=== PATIENT | female | born 1970 | race Caucasian/White ===

== ENCOUNTER 2020-09-15 08:37 | Outpatient (REF) | payer OTHER, SELFPAY ==
--- NOTE | 2020-09-15 08:43 | MM_ITS ---
EXAMINATION: MM SCREENING DIGITAL BREAST TOMOSYNTHESIS, BILATERAL CLINICAL INFORMATION: Screening. Asymptomatic. The lifetime risk of breast cancer based on the Tyrer-Cuzick Model is 18%. COMPARISON: Mammography: August 10, 2019 and studies dating back to February 02, 2014 TECHNIQUE: Digital breast tomosynthesis is performed in both the craniocaudal and mediolateral oblique views along with computer-aided detection (CAD). Synthesized 2D images are generated from the tomosynthesis. FINDINGS: There are scattered areas of fibroglandular density (ACR BI-RADS breast composition Category b). There are no significant masses, abnormal calcifications, or other abnormalities. MM/MM tomosynthesis screening BI IMPRESSION: There are no significant changes from prior study. ASSESSMENT: BI-RADS 1: Negative RECOMMENDATION: Routine annual mammography screening. This patient's information was entered into a reminder system with a target due date for their next mammogram.
== END 2020-09-15 08:38 | disposition home or self-care (01) ==
LOC: HO.MAMMO 08:37
PROVIDERS: PCP Internal Medicine; Visit Provider Internal Medicine
DX: Z12.31 Encounter for screening mammogram for malignant neoplasm of breast (principal)
CPT/HCPCS: 77063; 77067

== ENCOUNTER 2021-05-16 07:49 | Outpatient (REF) | payer OTHER, SELFPAY ==
--- NOTE | 2021-05-16 07:54 | ECG_ITS ---
Test Reason : RO3.0 Blood Pressure : / mmHG Vent. Rate : 056 BPM Atrial Rate : 056 BPM P-R Int : 166 ms QRS Dur : 078 ms QT Int : 432 ms P-R-T Axes : 045 059 045 degrees QTc Int : 416 ms Sinus bradycardia Otherwise normal ECG No previous ECGs available Referred By: Eileen Awad Electronically Signed By:Dar Allen
[2021-05-16 08:33] LABS: MANUAL DIFF FLAG NO
[2021-05-16 08:36] LABS: Basophils Percent Auto 0.5 % (0-2); Eosinophils Absolute Auto 0.1 X10*3/uL (0.0-0.4); Hemoglobin 12.5 g/dl (12.0-16.0); Imm Gran Abs Auto 0.02 X10*3/uL (0.00-0.03); Imm Gran Pct Auto 0.4 % (0.0-0.4); Lymphocytes Absolute Auto 1.9 X10*3/uL (1.2-4.9); Lymphocytes Percent Auto 33.4 % (20-40); Mean Corpuscular HGB Conc 32.1 g/dl (31.0-35.0); Mean Corpuscular Hemoglobin 29.2 pg (27.0-33.0); Mean Corpuscular Volume 91.1 fL (80-98); Mean Platelet Volume 10.1 fL (9.4-12.3); Monocytes Absolute Auto 0.4 X10*3/uL (0.1-1.2); Monocytes Percent Auto 6.9 % (2-11); Neutrophils Absolute Auto 3.2 X10*3/uL (2.0-8.3); Neutrophils Percent Auto 56.8 % (45-73); Platelet Count 213 X10*3/uL (160-400); Red Blood Count 4.28 X10*6/uL (4.20-5.50); Red Cell Distribution Width 11.7 % (11.0-16.0); White Blood Count 5.6 X10*3/uL (4.8-10.8)
[2021-05-16 09:04] LABS: Alanine Aminotransferase 44 U/L (0-31); Albumin Level 4.4 g/dL (3.5-5.0); Alkaline Phosphatase 80 U/L (39-117); Anion Gap 13 (12-20); Aspartate Amino Transferase 47 U/L (5-31); Bilirubin Total 0.7 mg/dL (0.0-1.0); Blood Urea Nitrogen 12 mg/dL (9-16); Calcium 9.7 mg/dL (8.4-10.2); Carbon Dioxide 27 mmol/L (22-29); Chloride 105 mmol/L (96-108); Cholesterol 227 mg/dL; Estimated Glomerular Filt Rate > 60; Glucose Random 87 mg/dL (60-115); Potassium 4.3 mmol/L (3.3-5.1); Sodium 141 mmol/L (135-145); Total Protein 7.1 g/dL (6.5-8.0); Triglycerides 48 mg/dL
[2021-05-16 09:06] LABS: Glucose Urine UA NEG (NEG); Leukocyte Esterase Urine TRACE (NEG); Nitrite Urine NEG (NEG); Urine Blood NEG (NEG); Urine Ketones NEG (NEG); Urine Protein NEG (NEG-TRACE)
[2021-05-16 09:07] LABS: Appearance Urine CLEAR; Color Urine YELLOW
[2021-05-16 09:18] LABS: Free T4 (Free Thyroxine) 1.05 ng/dL (0.71-1.85); Thyroid Stimulating Hormone 1.59 uIU/mL (0.32-4.0); Vitamin D 25-OH Total 22.4 ng/mL (>30)
[2021-05-16 09:22] LABS: HDL Cholesterol 113 mg/dL; LDL Cholesterol Calculated 105 mg/dl
[2021-05-16 09:28] LABS: Bacteria Urine TRACE /LPF; RBC Urine 0 /HPF (0); Squamous Epithelial Cell Urine 1+ /LPF; WBC Urine 0-2 /HPF (0-4)
[2021-05-16 10:04] LABS: Folate 15.1 ng/mL (> or = 4.0); Vitamin B12 465 pg/mL (200-900)
== END 2021-05-16 07:50 | disposition home or self-care (01) ==
LOC: HO.LAB 07:49
PROVIDERS: PCP Internal Medicine; Visit Provider Internal Medicine
DX: E78.00 Pure hypercholesterolemia, unspecified (principal); R03.0 Elevated blood-pressure reading, without diagnosis of hypertension; R79.89 Other specified abnormal findings of blood chemistry; R94.5 Abnormal results of liver function studies
CPT/HCPCS: 36415; 80053; 80061; 81001; 82306; 82607; 82746; 84439; 84443; 85025; 93005

== ENCOUNTER 2021-06-08 09:11 | Outpatient (REF) | payer OTHER, SELFPAY ==
--- NOTE | ~2021-06-08 | US_ITS ---
EXAMINATION: US ABDOMEN COMPLETE CLINICAL INFORMATION: Other specified abnormal findings of blood chemistry. COMPARISON: None TECHNIQUE: Real-time imaging of the abdominal viscera. FINDINGS: PANCREAS: Normal. ABDOMINAL AORTA: The proximal, mid, and distal segments are normal in caliber. INFERIOR VENA CAVA: Visualized portions are normal. LIVER: Normal. The liver is normal in size. The liver contour is normal. Parenchymal echogenicity is normal. No focal hepatic lesion. There is no intrahepatic biliary duct dilatation seen. GALLBLADDER: Normal. The gallbladder is physiologically distended without evidence of stones, sludge, polyps, wall thickening or pericholecystic fluid. COMMON BILE DUCT: Normal in caliber measuring 0.1 cm in diameter. RIGHT KIDNEY: Normal. No hydronephrosis. No renal calculi or focal parenchymal lesions. The kidney measures 9.4 cm in maximum dimension. LEFT KIDNEY: Normal. No hydronephrosis. No renal calculi or focal parenchymal lesions. The kidney measures 11.9 cm in maximum dimension. SPLEEN: Normal. The spleen measures 10.1 cm in maximum dimension. FREE FLUID: None. US/US abdomen complete IMPRESSION: Unremarkable ultrasound abdomen complete
[2021-06-08 11:04] LABS: Glucose Urine UA NEG (NEG); Leukocyte Esterase Urine 1+ (NEG); Nitrite Urine NEG (NEG); Specific Gravity - Urine >= 1.030 (1.005-1.025); Urine Blood NEG (NEG); Urine Ketones NEG (NEG); Urine Protein NEG (NEG-TRACE)
[2021-06-08 11:14] LABS: Appearance Urine CLOUDY; Color Urine YELLOW
[2021-06-08 11:33] LABS: Alanine Aminotransferase 34 U/L (0-31); Albumin Level 4.7 g/dL (3.5-5.0); Alkaline Phosphatase 84 U/L (39-117); Aspartate Amino Transferase 39 U/L (5-31); Bilirubin Direct 0.3 mg/dL (0.0-0.5); Bilirubin Total 0.7 mg/dL (0.0-1.0); Iron 137 mcg/dL (30-160); Percent Iron Saturation 35 % (15-50); Total Iron Binding Capacity 386 mcg/dL (228-428); Total Protein 7.8 g/dL (6.5-8.0); Unsaturated Iron Binding 249 ug/dL
[2021-06-08 11:45] LABS: HBS Num1 0.33 mIU/mL (0-7.99); ~Hepatitis B Surface Antibody NONREACTIVE (Nonreactive)
[2021-06-08 12:17] LABS: Bacteria Urine TRACE /LPF; Mucus Urine 1+ /LPF; RBC Urine 0-2 /HPF (0); Squamous Epithelial Cell Urine 1+ /LPF
[2021-06-08 13:17] LABS: HBc Num1 0.06 S/CO (0.00-0.79); HBsAGNum1 0.17 S/CO (0.00-0.99); Hepatitis B Core Antibody Nonreactive (Nonreactive); Hepatitis B Surface Antigen Negative (Negative); ~Hepatitis C Antibody Nonreactive (Nonreactive)
[2021-06-08 13:29] LABS: Ferritin 33 ng/mL (10-250)
[2021-06-12 13:37] LABS: Prot Elec - Albumin 4.8 g/dL (3.8-4.8); Prot Elec - Alpha1 0.3 g/dL (0.2-0.3); Prot Elec - Alpha2 0.7 g/dL (0.5-0.9); Prot Elec - Beta 1 0.5 g/dL (0.4-0.6); Prot Elec - Beta 2 0.4 g/dL (0.2-0.5); Prot Elec - Total Protein 7.6 g/dL (6.1-8.1)
[2021-06-12 15:00] LABS: Anti Nuclear Antibody Screen POSITIVE (NEGATIVE)
[2021-06-14 11:07] LABS: Smooth Muscle Antibody <20 U (<20)
== END 2021-06-08 09:12 | disposition home or self-care (01) ==
LOC: HO.US 09:11
PROVIDERS: PCP Internal Medicine; Visit Provider Internal Medicine
DX: R94.5 Abnormal results of liver function studies (principal); R79.89 Other specified abnormal findings of blood chemistry; R03.0 Elevated blood-pressure reading, without diagnosis of hypertension
CPT/HCPCS: 36415; 76700; 80076; 81001; 82728; 83540; 84165; 86038; 86039; 86255; 86704; 86706; 86803; 87340

== ENCOUNTER 2021-07-11 10:57 | Outpatient (REF) | payer OTHER, SELFPAY ==
[2021-07-11 14:17] LABS: Alanine Aminotransferase 26 U/L (0-31); Albumin Level 4.4 g/dL (3.5-5.0); Alkaline Phosphatase 71 U/L (39-117); Aspartate Amino Transferase 44 U/L (5-31); Bilirubin Direct 0.3 mg/dL (0.0-0.5); Bilirubin Total 0.6 mg/dL (0.0-1.0); Total Protein 6.9 g/dL (6.5-8.0)
[2021-07-17 13:51] LABS: Anti Nuclear Antibody Screen POSITIVE (NEGATIVE)
== END 2021-07-11 10:58 | disposition home or self-care (01) ==
LOC: HO.10HDL 10:57
PROVIDERS: Visit Provider Internal Medicine
DX: R74.8 Abnormal levels of other serum enzymes (principal)
CPT/HCPCS: 36415; 80076; 86038; 86039

== ENCOUNTER 2021-09-04 08:47 | Day surgery (SDC) | payer OTHER, SELFPAY ==
[2021-08-28 14:33] VITALS: BMI 23.3
--- NOTE | 2021-09-01 08:43 | HO.ANESPROP2 ---
Documented by User: Nora Boyd NP 09/01/21 08:44 HPI - Anesthesia Eval Consult details Narrative: 51yo F for Colonoscopy PMFSH Active Problems Active Problems: All Active Problems (Updated 05/16/21 @ 18:27 by Eileen Awad MD) LFT elevation (Acute) White coat syndrome with high blood pressure but without hypertension (Acute) Colon cancer screening (Acute) Annual physical exam (Acute) Past Medical History Medical History (Updated 05/16/21 @ 18:27 by Eileen Awad MD) Onychomycosis Family History Family History (Updated 03/24/21 @ 15:23 by Eileen Awad MD) Father Heart disease Irregular heart beat Mother Breast cancer Brother In good health Son In good health Maternal Uncle Myocardial infarct Surgical History Surgical History (Updated 11/10/20 @ 09:00 by Tahira Alvarez [facility]) History of section Social History Social History (Updated 03/24/21 @ 15:24 by Eileen Awad MD) Alcohol intake: current Alcohol intake frequency: does not drink Patient Tobacco Use Status: Never used Tobacco Second Hand Smoke Exposure: No Use of substances other than those prescribed or required for medical reasons: No Are you DNR?: No Advance Directives: No Advance Directives Information Provided: Yes Advance Directives on File: No Meds Allergies Allergy/AdvReac Type Severity Reaction Status Date / Time No Known Allergies Allergy Verified 11/10/20 09:00 Home Medications Medication Instructions Recorded Confirmed Last Taken Type magnesium oxide 400 mg PO DAILY 03/24/21 03/24/21 Unknown History Exam Exam Date and Time: September 01, 2021 0843 Height,Weight and Vital Signs: Height 6 ft Weight 78.018 kg Pertinent Lab Results Pertinent Lab Results: Laboratory Tests 05/16/21 05/16/21 08:10 08:10 WBC 5.6 Hgb 12.5 Hct 39.0 Plt Count 213 Sodium 141 Potassium 4.3 Chloride 105 Carbon Dioxide 27 BUN 12 Creatinine 0.87 Narrative Narrative: EKG 05/2021 Vent. Rate : 056 BPM ? ? Atrial Rate : 056 BPM ?? P-R Int : 166 ms? QRS Dur : 078 ms ? ? QT Int : 432 ms ? ? ? P-R-T Axes : 045 059 045 degrees ?? QTc Int : 416 ms ? Sinus bradycardia Otherwise normal ECG No previous ECGs available Assessment and Plan Assessment Anesthesia Assessment: Chart Reviewed Documented by User: Alyse Sheehan MD 09/04/21 09:05 [facility] Past Medical History Medical History (Updated 05/16/21 @ 18:27 by Eileen Awad MD) Onychomycosis Family History Family History (Updated 03/24/21 @ 15:23 by Eileen Awad MD) Father Heart disease Irregular heart beat Mother Breast cancer Brother In good health Son In good health Maternal Uncle Myocardial infarct Family history of problems with anesthesia: No Surgical History Surgical History (Updated 11/10/20 @ 09:00 by Tahira Alvarez Molly) History of section History of Problems with Anesthesia: No Social History Social History (Updated 03/24/21 @ 15:24 by Eileen Awad MD) Alcohol intake: current Alcohol intake frequency: does not drink Patient Tobacco Use Status: Never used Tobacco Second Hand Smoke Exposure: No Use of substances other than those prescribed or required for medical reasons: No Are you DNR?: No Advance Directives: No Advance Directives Information Provided: Yes Advance Directives on File: No Meds Allergies Allergy/AdvReac Type Severity Reaction Status Date / Time No Known Allergies Allergy Verified 11/10/20 09:00 Home Medications Medication Instructions Recorded Confirmed Last Taken Type magnesium oxide 400 mg PO DAILY 03/24/21 03/24/21 Unknown History Exam Airway Mallampati Class: II TM Dist: >3cm Neck ROM: Full Heart: rrr Lungs: cta Assessment and Plan Assessment Anesthesia Assessment: Anesthesia Plan Discussed and Chart Reviewed Final Anesthetic Review Family History of Problems with Anesthesia: No History of Problems with Anesthesia: No NPO: Yes ASA Class: II Final Preanesthetic Review: No Changes in Pt Med Stat, Meds/Allgs Chart Reviewed and Consent Obtained/Reviewed Patient Risk: Intermediate Procedure Risk: Intermediate Anesthetic Plan Anesthetic Plan: MAC: Disposition: Standard PACU
[2021-09-04 09:04] VITALS: BP 133/78; PULSE 70; RESP 16; TEMP 36.6; O2SAT 99
[2021-09-04] MEDS: Lactated Ringers 1,000 ML 100 ML IVCONT (09:22)
[2021-09-04 11:04] VITALS: BP 106/72; PULSE 69; RESP 16; TEMP 37.1; O2SAT 98
--- NOTE | 2021-09-04 11:08 | PM.OP ---
Brief Operative Note Date of Service: 09/04/21 Pre-op diagnosis: Screening Post-op diagnosis: other (Colon polyp) Procedure: Colonoscopy to the cecum with biopsy and removal of polyp Surgeon: Homer Duong Anesthesia: MAC Was an Certified Personal Finance Counselor used for this Procedure?: No Estimated blood loss (mL): 3.0 Pathology: other (A. Ascending colon polyp) Condition: stable Disposition: PACU
[2021-09-04 11:22] VITALS: BP 117/87; PULSE 69; RESP 18; TEMP 36.7; O2SAT 100
--- NOTE | 2021-09-04 20:19 | OP_ITS ---
SURGEON: Homer Duong MD INDICATIONS: The patient presents for evaluation of colorectal cancer screening. Full consent has been obtained from her for that, including risks of bleeding and perforation. PREOPERATIVE DIAGNOSIS: Colorectal cancer screening. POSTOPERATIVE DIAGNOSIS: PROCEDURE PERFORMED: Colonoscopy to the cecum with biopsy and removal of polyp. ESTIMATED BLOOD LOSS: COMPLICATIONS: ANESTHESIA: Monitored anesthesia care. ASSISTANTS: SPECIMENS: POSTOPERATIVE DIAGNOSES: Colorectal cancer screening, small colon polyp, mild sigmoid diverticulosis, small internal hemorrhoids. DESCRIPTION OF PROCEDURE: The patient was placed in the left lateral decubitus position. The digital rectal exam revealed no abnormalities. The Olympus video pediatric colonoscope was entered into the rectum and advanced to the cecum with the assistance of abdominal wall pressure. Once in the cecum, I did identify normal-appearing cecal pouch with appendiceal orifice and a normal-appearing ileocecal valve. The entire cecum and ileocecal valve appeared normal. There was transillumination of light deep in the right lower quadrant. The scope was slowly withdrawn assessing all mucosal surfaces carefully. Preparation was excellent. In the proximal ascending colon, was a flat approximately 3 or 4 mm polyp, which was biopsied and completely removed with cold biopsy forceps. I did not visualize any other polyps, colitis, nor angiodysplasia. There was a mild amount of sigmoid diverticulosis. In the rectum, scope was retroflexed visualizing internal hemorrhoids, but no other pathology. The rectal mucosa appeared normal. The scope was straightened out and withdrawn from the patient. She tolerated the procedure well and was returned to the recovery area in stable condition. IMPRESSION: 1. Small colon polyp, status post biopsy and removal. 2. Mild sigmoid diverticulosis. 3. Small internal hemorrhoids. PLAN: The results of the biopsy will be checked. If this is a tubular adenoma, I would recommend a followup colonoscopy in 5 years. If it is only hyperplastic, I would recommend a followup colonoscopy in 10 years. MD WILD Rolle/BENL / [id number]
== END 2021-09-04 12:00 | disposition home or self-care (01) ==
PROVIDERS: PCP Internal Medicine; Visit Provider Internal Medicine
PROC: 0DJD8ZZ Inspection of Lower Intestinal Tract, Via Natural or Artificial Opening Endoscopic (ICD-10-PCS; CPT 45378; principal; 2021-09-04 10:20)
DX: Z12.11 Encounter for screening for malignant neoplasm of colon (principal); D12.2 Benign neoplasm of ascending colon; K57.30 Diverticulosis of large intestine without perforation or abscess without bleeding; K64.8 Other hemorrhoids; R74.8 Abnormal levels of other serum enzymes
CPT/HCPCS: 45380; 88305

== ENCOUNTER 2021-09-30 09:48 | Outpatient (REF) | payer OTHER, SELFPAY ==
--- NOTE | ~2021-09-30 | MM_ITS ---
EXAMINATION: MM SCREENING DIGITAL BREAST TOMOSYNTHESIS, BILATERAL CLINICAL INFORMATION: Screening. Asymptomatic. The lifetime risk of breast cancer based on the Tyrer-Cuzick Model is 14%. COMPARISON: Mammography: 09/15/2020, 08/10/2019, 07/08/2018 TECHNIQUE: Digital breast tomosynthesis is performed in both the craniocaudal and mediolateral oblique views along with computer-aided detection (CAD). Synthesized 2D images are generated from the tomosynthesis. FINDINGS: There are scattered areas of fibroglandular density (ACR BI-RADS breast composition Category b). There are no significant masses, abnormal calcifications, or other abnormalities. Parenchymal pattern is similar to prior exams. No developing density. No significant changes. Skin contours are smooth. MM/MM tomosynthesis screening BI IMPRESSION: No mammographic evidence of malignancy. ASSESSMENT: BI-RADS 1: Negative RECOMMENDATION: Routine annual mammography screening. This patient's information was entered into a reminder system with a target due date for their next mammogram.
== END 2021-09-30 09:49 | disposition home or self-care (01) ==
LOC: HO.MAMMO 09:48
PROVIDERS: Visit Provider Internal Medicine
DX: Z12.31 Encounter for screening mammogram for malignant neoplasm of breast (principal)
CPT/HCPCS: 77063; 77067

== ENCOUNTER 2022-09-25 07:40 | Outpatient (REF) | payer OTHER, SELFPAY ==
[2022-09-25 11:06] LABS: MANUAL DIFF FLAG NO
[2022-09-25 11:19] LABS: Basophils Percent Auto 0.7 % (0-2); Eosinophils Absolute Auto 0.1 X10*3/uL (0.0-0.4); Eosinophils Percent Auto 1.7 % (0-4); Hematocrit 41.7 % (37.0-47.0); Hemoglobin 13.5 g/dl (12.0-16.0); Lymphocytes Absolute Auto 1.6 X10*3/uL (1.2-4.9); Lymphocytes Percent Auto 37.2 % (20-40); Mean Corpuscular HGB Conc 32.4 g/dl (31.0-35.0); Mean Corpuscular Volume 89.5 fL (80.0-98.0); Mean Platelet Volume 10.8 fL (9.4-12.3); Monocytes Absolute Auto 0.3 X10*3/uL (0.1-1.2); Monocytes Percent Auto 6.4 % (2-11); Neutrophils Absolute Auto 2.3 x10*3/uL (2.0-8.3); Platelet Count 227 X10*3/uL (160-400); Red Blood Count 4.66 X10*6/uL (4.20-5.50); Red Cell Distribution Width 11.4 % (11.0-16.0); White Blood Count 4.2 X10*3/uL (4.8-10.8)
[2022-09-25 11:37] LABS: Alanine Aminotransferase 19 U/L (0-31); Albumin Level 4.5 g/dL (3.5-5.0); Alkaline Phosphatase 70 U/L (39-117); Anion Gap 14 (12-20); Aspartate Amino Transferase 28 U/L (5-31); Bilirubin Total 0.6 mg/dL (0.0-1.0); Blood Urea Nitrogen 11 mg/dL (9-16); C Reactive Protein 0.19 mg/dL (< or = 0.50); Calcium 9.5 mg/dL (8.4-10.2); Carbon Dioxide 27 mmol/L (22-29); Chloride 104 mmol/L (96-108); Cholesterol 242 mg/dL; Estimated Glomerular Filt Rate > 60; Glucose Random 75 mg/dL (60-115); HDL Cholesterol 106 mg/dL; LDL Cholesterol Calculated 126 mg/dl; Potassium 3.8 mmol/L (3.3-5.1); Sodium 141 mmol/L (135-145); Total Protein 7.1 g/dL (6.5-8.0); Triglycerides 52 mg/dL
[2022-09-25 11:56] LABS: Estimated Average Glucose 100 mg/dL; Hemoglobin A1c % 5.1 %
[2022-09-25 12:01] LABS: Free T4 (Free Thyroxine) 1.02 ng/dL (0.71-1.85); Thyroid Stimulating Hormone 1.58 uIU/mL (0.32-4.0)
[2022-09-25 12:03] LABS: Erythrocyte Sedimentation Rate 5 MM/HR (0-20)
[2022-09-25 12:52] LABS: Folate 9.4 ng/mL (> or = 4.0); Vitamin B12 460 pg/mL (200-900)
[2022-09-25 13:33] LABS: Vitamin D 25-OH Total 24.7 ng/mL (>30)
== END 2022-09-25 07:41 | disposition home or self-care (01) ==
LOC: HO.10HDL 07:40
PROVIDERS: Visit Provider Internal Medicine
DX: R79.89 Other specified abnormal findings of blood chemistry (principal); E78.00 Pure hypercholesterolemia, unspecified
CPT/HCPCS: 36415; 80053; 80061; 82306; 82607; 82746; 83036; 84439; 84443; 85025; 85652; 86140

== ENCOUNTER 2022-10-02 07:30 | Outpatient (REF) | payer OTHER, SELFPAY ==
--- NOTE | ~2022-10-02 | MM_ITS ---
EXAMINATION: MM SCREENING DIGITAL BREAST TOMOSYNTHESIS, BILATERAL CLINICAL INFORMATION: Screening. Asymptomatic. The lifetime risk of breast cancer based on the Tyrer-Cuzick Model is 15%. COMPARISON: Mammography: 09/30/2021, 09/15/2020, 08/10/2019 TECHNIQUE: Digital breast tomosynthesis is performed in both the craniocaudal and mediolateral oblique views along with computer-aided detection (CAD). Synthesized 2D images are generated from the tomosynthesis. FINDINGS: There are scattered areas of fibroglandular density (ACR BI-RADS breast composition Category b). There are no significant masses, abnormal calcifications, or other abnormalities. No developing density or architectural abnormality. The axilla and skin contours are unremarkable. No significant changes from prior studies. MM/MM tomosynthesis screening BI IMPRESSION: No mammographic evidence of malignancy. ASSESSMENT: BI-RADS 1: Negative RECOMMENDATION: Routine annual mammography screening. This patient's information was entered into a reminder system with a target due date for their next mammogram.
== END 2022-10-02 07:31 | disposition home or self-care (01) ==
LOC: HO.MAMMO 07:30
PROVIDERS: PCP Internal Medicine; Visit Provider Internal Medicine
DX: Z12.31 Encounter for screening mammogram for malignant neoplasm of breast (principal)
CPT/HCPCS: 77063; 77067

== ENCOUNTER → 2023-10-04 07:45 | Outpatient (BNV) | payer OTHER, SELFPAY | PROVIDERS: PCP Internal Medicine; Visit Provider Radiology Diagnostic Radiology | DX: Z12.31 Encounter for screening mammogram for malignant neoplasm of breast (principal) | CPT/HCPCS: 77063; 77067 ==

== ENCOUNTER 2023-10-04 07:48 | Outpatient (REF) | payer OTHER, SELFPAY | END 2023-10-04 07:49 | disposition home or self-care (01) | LOC: HO.MAMMO 07:48 | PROVIDERS: PCP Internal Medicine; Visit Provider Internal Medicine | DX: Z12.31 Encounter for screening mammogram for malignant neoplasm of breast (principal) | CPT/HCPCS: 77063; 77067 ==

== ENCOUNTER 2023-10-22 11:10 | Outpatient (AMB) | payer OTHER, SELFPAY ==
--- NOTE | 2023-10-22 11:11 | MHC.PC.OV ---
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 Last seen in 2021 last year mammogram is up-to-date colonoscopy was done in September 2021 having tubular adenoma up-to-date [facility] Medical History (Updated 03/14/22 @ 13:11 by Eileen Awad MD) Colon cancer screening Onychomycosis Surgical History History of section Family History Father Heart disease Irregular heart beat Mother Breast cancer Brother In good health Son In good health Maternal Uncle Myocardial infarct Social History (Updated 10/22/23 @ 11:53 by Eileen Awad MD) Housing: Apartment Alcohol intake: current Alcohol intake frequency: does not drink Comment: 1 a week 1-2 drinks Patient Tobacco Use Status: Never used Tobacco e-Cigarette/Vaping Use: Never Used Second Hand Smoke Exposure: No Current occupational status: employed Cognitive needs: No Hearing needs: No Vision needs: No Questionnaire PHQ-9 Over the last 2 weeks, how often have you been bothered by any of the following problems? 2. Feeling down, depressed, or hopeless: not at all 3. Trouble falling or staying asleep, or sleeping too much: not at all 4. Feeling tired or having little energy: not at all 5. Poor appetite or overeating: not at all 6. Feeling bad about yourself - or that you are a failure or have let yourself or your family down: not at all 7. Trouble concentrating on things, such as reading the newspaper or watching television: not at all 8. Moving or speaking so slowly that other people could have noticed. Or the opposite - being so fidgety or restless that you have been moving around a lot more than usual: not at all 9. Thoughts that you would be better off or of hurting yourself in some way: not at all 16210 - PHQ-9 Billing: Yes Source: Developed by Drs. Homer Ramírez, Charmaine Cutler, Car Sanon and colleagues, with an educational ej from [employer]. Thrive Questionnaire Date Thrive assessed: 10/22/23 I am a: Patient What is your living situation today?: I have a steady place to live Within the past 12 months, did the food you bought not last and you didn't have the money to get more?: Never true Within the past 12 months, did you worry whether your food would run out before you got money to buy more?: Never true Do you have trouble paying for medicines?: No Do you have trouble getting transportation to medical appointments?: No Do you have trouble paying your heating and electricity bill?: No Do you have trouble taking care of your child, family member or friend?: No Do you have trouble with day-to-day activities such as bathing, preparing meals, shopping, managing finances, etc.?: No Are you currently unemployed and looking for a job?: No Are you interested in more education?: No Please select the resources that you would like help with: None Currently or been in a relationship where the following occur: no concerns reported AUDIT C Alcohol Use Questionnaire (AUDIT-C) 1. How often do you have a drink containing alcohol?: 2-3 times a week 2. How many drinks containing alcohol do you have on a typical day when you are drinking?: 1 or 2 3. How often do you have six or more drinks on one occasion?: Never Total Score: 3 ASHOK-7 AMB Questionnaire ASHOK-7 Date ASHOK - 7 assessed: 10/22/23 Feeling nervous, anxious, or on edge: 0 = Not at all Not being able to stop or control worryin = Not at all Worrying too much about different things: 0 = Not at all Trouble relaxin = Not at all Being so restless that it is hard to sit still: 0 = Not at all Becoming easily annoyed or irritable: 0 = Not at all Feeling afraid as if something awful might happen: 0 = Not at all Total ASHOK-7 score (0-4 normal; 5-9 mild; 10-14 moderate; 15-21 severe): 0 Source: Developed by Drs. Homer Ramírez, Charmaine Cutler, Car Sanon and colleagues, with an educational ej from [employer]. ASHOK-7 Assessment Billing ASHOK-7 Assessment Tool: ASHOK-7 Assessment 93657 Review of Systems Const Denies poor appetite and Denies weakness Eyes Denies no additional complaints ENT Reports Normal hearing present, Denies dizziness, Denies nasal congestion, Denies tinnitus and Denies sore throat Card Denies chest pain, Denies syncope, Denies rapid heart rate and Denies dyspnea Resp Denies cough and Denies dyspnea GI Denies change in stool character, Reports constipation, Denies diarrhea, Denies nausea and Denies vomiting Denies urinary frequency, Denies difficulty voiding and Denies dysuria Neuro Reports Normal hearing present, Denies confusion, Denies dizziness, Denies syncope and Denies weakness Psych Denies confusion Physical exam (Primary Care) Vital Signs: Last Vital Signs Pulse 59 10/22/23 11:12 BP 140/100 H 10/22/23 11:12 Pulse Ox 94 10/22/23 11:12 Oxygen Delivery Method Room Air 10/22/23 11:12 BMI result Body Mass Index 23.9 Tobacco/Smoking Status: Tobacco use Status Tobacco use date assessed 10/22/23 10/22/23 11:18 Patient Tobacco Use Status Never used Tobacco 10/22/23 11:18 e-Cigarette/Vaping Use Never Used 10/22/23 11:18 Thrive Assessment: Date of Thrive Assessment Date Thrive assessed 10/22/23 10/22/23 11:18 Currently or been in a relationship where the following occur: no concerns reported Const General: No confusion Orientation/consciousness: No confusion HENMT Head: Yes normocephalic Ears: external ears normal and TM's normal bilaterally Face and sinus: Yes normal facial exam Mouth: moist mucous membranes Throat: Yes tonsils normal Eyes Conjunctivae: conjunctivae normal Pupils: Equal, round and reactive pupils present and Pupil accommodation reflex normal Direct Ophthalmoscopy: normal light reflex Neck Neck: No lymphadenopathy Thyroid: Thyroid normal Chest Chest palpation & inspection: normal inspection of the chest Resp Effort & Inspection: normal respiratory effort and no audible wheezes Auscultation: clear to auscultation bilaterally, no crackles, no wheezes and lung sounds not diminished Cardio Rate: regular rate Rhythm: regular rhythm Peripheral pulses: radial pulses present and dorsalis pedis present GI Palpation (GI): no masses Auscultation: normal bowel sounds and normoactive bowel sounds Rectal Exam - Female: deferred Skin General skin exam: no rashes or lesions noted Rashes: no rashes Neuro General: No confusion Cranial nerves: Yes Equal, round and reactive pupils present and Yes Normal hearing present Cognition (Neuro): normal cognition Gait exam (Neuro): Normal gait present Motor exam (neuro): 5/5 motor strength present throughout Deep tendon reflexes (DTR's): Right brachioradialis reflex intensity grade: 2+, Left brachioradialis reflex intensity grade: 2+, Right patellar reflex intensity grade: 2+ and Left patellar reflex intensity grade: 2+ Extrem General: No edema Assessment and Plan Assessment & Plan (1) Annual physical exam: Code(s): Z00.00 - Encounter for general adult medical examination without abnormal findings (2) White coat syndrome with high blood pressure but without hypertension: Code(s): R03.0 - Elevated blood-pressure reading, without diagnosis of hypertension Orders: Orders Comprehensive Met. Panel Today R03.0 - Elevated blood-pressure reading, without diagnosis of hypertension Thyroid Stimulating Hormone Today R03.0 - Elevated blood-pressure reading, without diagnosis of hypertension Complete Blood Count Auto Diff Today R03.0 - Elevated blood-pressure reading, without diagnosis of hypertension Free T4 (Free Thyroxine) Today R03.0 - Elevated blood-pressure reading, without diagnosis of hypertension Lipid Panel Today E78.00 - Pure hypercholesterolemia, unspecified, R03.0 - Elevated blood-pressure reading, without diagnosis of hypertension Vitamin B12 and Folate Today R03.0 - Elevated blood-pressure reading, without diagnosis of hypertension Vitamin D 25-OH Total Today R03.0 - Elevated blood-pressure reading, without diagnosis of hypertension Coding Level of Care Code Est Pt Prev Care 40-64y(51213) Diagnoses Annual physical exam Z00.00 White coat syndrome with high blood pressure but without hypertension R03.0 Additional Codes ASHOK-7 Assessment Billing - ASHOK-7 Assessment Tool: ASHOK-7 Assessment 18547 ([id number])
[2023-10-22 11:12] VITALS: BP 140/100; PULSE 59; O2SAT 94; BMI 23.9
== END 2023-10-22 12:04 | disposition home or self-care (01) ==
PROVIDERS: Visit Provider Internal Medicine
DX: Z00.00 Encounter for general adult medical examination without abnormal findings (principal); R03.0 Elevated blood-pressure reading, without diagnosis of hypertension
CPT/HCPCS: 99396

== ENCOUNTER 2024-09-15 14:45 | Outpatient (AMB) | payer OTHER, SELFPAY ==
--- NOTE | 2024-09-15 14:46 | A.OFFPC_ITS ---
Intake Visit Reasons: Poison Kailyn Allergies No Known Allergies Allergy (Verified 10/22/23 11:12) Tobacco use date assessed: 10/22/23 Dental Screening Dental Screen Date: 10/22/23 HPI Poison Kailyn HPI Details 54-year-old female calling in through [email or web address] , 2 days ago working in the yard. rash R wrist noted vesicle on the R wrist [facility] Medical History (Updated 09/15/24 @ 14:58 by Eileen Awad MD) Colon cancer screening Onychomycosis Surgical History History of section Family History Father Heart disease Irregular heart beat Mother Breast cancer Brother In good health Son In good health Maternal Uncle Myocardial infarct Social History (Updated 10/22/23 @ 11:53 by Eileen Awad MD) Housing: Apartment Alcohol intake: current Alcohol intake frequency: does not drink Comment: 1 a week 1-2 drinks Patient Tobacco Use Status: Never used Tobacco e-Cigarette/Vaping Use: Never Used Second Hand Smoke Exposure: No Current occupational status: employed Cognitive needs: No Hearing needs: No Vision needs: No Questionnaire Thrive Questionnaire Date Thrive assessed: 10/22/23 AUDIT C Alcohol Use Questionnaire (AUDIT-C) 1. How often do you have a drink containing alcohol?: Never 2. How many drinks containing alcohol do you have on a typical day when you are drinking?: 1 or 2 3. How often do you have six or more drinks on one occasion?: Never Total Score: 0 ASHOK-7 AMB Questionnaire ASHOK-7 Date ASHOK - 7 assessed: 10/22/23 Source: Developed by Drs. Homer Ramírez, Charmaine Cutler, Car Sanon and colleagues, with an educational ej from [employer]. Physical exam (Primary Care) Tobacco/Smoking Status: Tobacco use Status Tobacco use date assessed 10/22/23 09/15/24 14:47 Patient Tobacco Use Status Never used Tobacco 09/15/24 14:47 e-Cigarette/Vaping Use Never Used 09/15/24 14:47 Thrive Assessment: Date of Thrive Assessment Date Thrive assessed 10/22/23 09/15/24 14:47 Skin Other: R wrist maculo vesicular area clear fluid with also L forearm Telehealth Telehealth Telehealth Platform: Telephone Location of provider rendering services: practice address Location of patient: address on file Patient Identification confirmed using: Name, : No Telehealth method: video Patient verbally consented to treatment: Yes Patient verbally consented to billing insurance company: Yes Patient informed of any privacy concerns related to visit: Yes Coding Level of Care Code Tele Est Pt Level 3 (48917) Diagnoses Allergic dermatitis due to other chemical product L23.5 Contact dermatitis trigger: other chemical product Assessment & Plan Assessment & Plan (1) Allergic contact dermatitis: Code(s): L23.9 - Allergic contact dermatitis, unspecified cause Category: Medical Qualifiers: Contact dermatitis trigger: other chemical product Qualified Code(s): L23.5 - Allergic contact dermatitis due to other chemical products Plan: Patient is given steroids by mouth as well as cream and advised to take allergy medication. Discussed about secondary infection which patient has to call. Medications: New prednisone 4 tabs QD x 2 days then 3 tabs QD x 2 days then 2 tabs Qd x 2 days then 1 tab QD x 2 days PO daily; 20 tabs 0RF J45.909 - Unspecified asthma, uncomplicated, L23.9 - Allergic contact dermatitis, unspecified cause triamcinolone acetonide 0.5% 1 appl topical BID 30 grams 0RF L23.9 - Allergic contact dermatitis, unspecified cause
== END 2024-09-15 15:45 | disposition home or self-care (01) ==
LOC: HO.HMCH 14:45
PROVIDERS: PCP Internal Medicine; Visit Provider Internal Medicine
DX: L23.5 Allergic contact dermatitis due to other chemical products (principal)

== ENCOUNTER 2024-10-19 07:38 | Outpatient (REF) | payer OTHER, SELFPAY | END 2024-10-19 07:39 | disposition home or self-care (01) | LOC: HO.MAMMO 07:38 | PROVIDERS: PCP Internal Medicine; Visit Provider Internal Medicine | DX: Z12.31 Encounter for screening mammogram for malignant neoplasm of breast (principal) | CPT/HCPCS: 77063; 77067 ==

== ENCOUNTER → 2024-10-19 07:45 | Outpatient (BNV) | payer OTHER, SELFPAY | PROVIDERS: PCP Internal Medicine; Visit Provider Internal Medicine | DX: Z12.31 Encounter for screening mammogram for malignant neoplasm of breast (principal) | CPT/HCPCS: 77063; 77067 ==

== ENCOUNTER 2025-02-23 08:52 | Outpatient (AMB) | payer OTHER, SELFPAY ==
--- NOTE | 2025-02-23 08:57 | A.OFFPC_ITS ---
Vital Signs 02/23/25 08:58 Height 6 ft Weight 178 lb 2 oz BMI 24.2 BP 130/70 Blood Pressure Location Lt brachial Position Sitting Temp 97.2 F Temp Source Temporal Artery Scan Intake Visit Reasons: PE Intake Note: Patient is here today for a physical. Freight Inspector Required: No Down Filler: Not Required per policy Accompanied by: Self / Same As Patient Allergies No Known Allergies Allergy (Verified 02/23/25 08:58) Tobacco use date assessed: 02/23/25 Dental Screening Dental Screen Date: 02/23/25 Did you have a dental visit in the last 12 months?: Yes Did you have a dental problem in the last 6 months where you did not have access to dental care?: No Was dental information given to patient?: Patient has dentist [facility] Medical History (Updated 02/23/25 @ 09:09 by Eileen Awad MD) Abnormal physical evaluation Colon cancer screening Onychomycosis Surgical History History of section Family History (Updated 02/23/25 @ 09:01 by HÉCTOR Garcia) Father Heart disease Irregular heart beat Mother Breast cancer Brother In good health Son In good health Maternal Uncle Myocardial infarct Social History (Updated 02/23/25 @ 09:13 by Eileen Awad MD) Housing: Apartment Alcohol intake: current Alcohol intake frequency: holidays/special occasions only Comment: 1 a week 1-2 drinks, 02/2025 now less Patient Tobacco Use Status: Never used Tobacco e-Cigarette/Vaping Use: Never Used Second Hand Smoke Exposure: No service: No Current occupational status: employed Cognitive needs: No Hearing needs: No Vision needs: Yes (Glasses) Questionnaire PHQ-9 Over the last 2 weeks, how often have you been bothered by any of the following problems? 1. Little interest or pleasure in doing things: not at all 2. Feeling down, depressed, or hopeless: not at all 3. Trouble falling or staying asleep, or sleeping too much: not at all 4. Feeling tired or having little energy: not at all 5. Poor appetite or overeating: not at all 6. Feeling bad about yourself - or that you are a failure or have let yourself or your family down: not at all 7. Trouble concentrating on things, such as reading the newspaper or watching television: not at all 8. Moving or speaking so slowly that other people could have noticed. Or the opposite - being so fidgety or restless that you have been moving around a lot more than usual: not at all 9. Thoughts that you would be better off or of hurting yourself in some way: not at all Total score: 0 Depression Screening Interpretation: Negative Depression Screening Done: Yes Source: Developed by Drs. Homer Ramírez, Charmaine Cutler, Car Sanon and colleagues, with an educational ej from [employer]. Thrive Questionnaire Date Thrive assessed: 02/23/25 I am a: Patient What is your living situation today?: I have a steady place to live Within the past 12 months, did the food you bought not last and you didn't have the money to get more?: Never true Within the past 12 months, did you worry whether your food would run out before you got money to buy more?: Never true Do you have trouble paying for medicines?: No Do you have trouble getting transportation to medical appointments?: No Do you have trouble paying your heating and electricity bill?: No Do you have trouble taking care of your child, family member or friend?: No Do you have trouble with day-to-day activities such as bathing, preparing meals, shopping, managing finances, etc.?: No Are you currently unemployed and looking for a job?: No Are you interested in more education?: No Please select the resources that you would like help with: None Currently or been in a relationship where the following occur: No concerns reported THRIVE Score: 0 AUDIT C Alcohol Use Questionnaire (AUDIT-C) 1. How often do you have a drink containing alcohol?: 2-4 times a month 2. How many drinks containing alcohol do you have on a typical day when you are drinking?: 1 or 2 3. How often do you have six or more drinks on one occasion?: Never Total Score: 2 ASHOK-7 AMB Questionnaire ASHOK-7 Date ASHOK - 7 assessed: 02/23/25 Feeling nervous, anxious, or on edge: 0 = Not at all Not being able to stop or control worryin = Not at all Worrying too much about different things: 0 = Not at all Trouble relaxin = Not at all Being so restless that it is hard to sit still: 0 = Not at all Becoming easily annoyed or irritable: 0 = Not at all Feeling afraid as if something awful might happen: 0 = Not at all Total ASHOK-7 score (0-4 normal; 5-9 mild; 10-14 moderate; 15-21 severe): 0 Source: Developed by Drs. Homer Ramírez, Charmaine Cutler, Car Sanon and colleagues, with an educational ej from [employer]. Review of Systems Const Denies poor appetite and Denies weakness Eyes Denies no additional complaints ENT Reports Normal hearing present, Denies dizziness, Denies nasal congestion, Denies tinnitus and Denies sore throat Card Denies chest pain, Denies syncope, Denies rapid heart rate and Denies dyspnea Resp Denies cough and Denies dyspnea GI Denies change in stool character, Reports constipation, Denies diarrhea, Denies nausea and Denies vomiting Denies urinary frequency, Denies difficulty voiding and Denies dysuria Neuro Reports Normal hearing present, Denies confusion, Denies dizziness, Denies syncope and Denies weakness Psych Denies confusion Physical exam (Primary Care) Vital Signs: Last Vital Signs Temp 97.2 F 02/23/25 08:58 BP 130/70 02/23/25 08:58 BMI result Body Mass Index 24.2 Tobacco/Smoking Status: Tobacco use Status Tobacco use date assessed 02/23/25 02/23/25 09:03 Patient Tobacco Use Status Never used Tobacco 02/23/25 09:03 e-Cigarette/Vaping Use Never Used 02/23/25 09:03 PHQ-9: PHQ-9 Score PHQ-9: Total score 0 02/23/25 09:03 Depression Screening Interpretation: Negative Thrive Assessment: Date of Thrive Assessment Date Thrive assessed 02/23/25 02/23/25 09:03 Currently or been in a relationship where the following occur: No concerns reported Const General: No confusion Orientation/consciousness: No confusion HENMT Head: Yes normocephalic Ears: external ears normal and TM's normal bilaterally Face and sinus: Yes normal facial exam Mouth: moist mucous membranes Throat: Yes tonsils normal Eyes Conjunctivae: conjunctivae normal Pupils: Equal, round and reactive pupils present and Pupil accommodation reflex normal Direct Ophthalmoscopy: normal light reflex Neck Neck: No lymphadenopathy Thyroid: Thyroid normal Chest Chest palpation & inspection: normal inspection of the chest Resp Effort & Inspection: normal respiratory effort and no audible wheezes Auscultation: clear to auscultation bilaterally, no crackles, no wheezes and lung sounds not diminished Cardio Rate: regular rate Rhythm: regular rhythm Peripheral pulses: radial pulses present and dorsalis pedis present GI Palpation (GI): no masses Auscultation: normal bowel sounds and normoactive bowel sounds Rectal Exam - Female: deferred Skin General skin exam: no rashes or lesions noted Rashes: no rashes Neuro General: No confusion Cranial nerves: Yes Equal, round and reactive pupils present and Yes Normal hearing present Cognition (Neuro): normal cognition Gait exam (Neuro): Normal gait present Motor exam (neuro): 5/5 motor strength present throughout Deep tendon reflexes (DTR's): Right brachioradialis reflex intensity grade: 2+, Left brachioradialis reflex intensity grade: 2+, Right patellar reflex intensity grade: 2+ and Left patellar reflex intensity grade: 2+ Extrem General: No edema Coding Level of Care Code Est Pt Prev Care 40-64y(39369) Diagnoses Vitamin D deficiency E55.9 Annual physical exam Z00.00 Assessment & Plan Assessment & Plan (1) Vitamin D deficiency: Code(s): E55.9 - Vitamin D deficiency, unspecified Category: Medical Plan: Vitamin-D 0702-5695 units once a day (2) Annual physical exam: Code(s): Z00.00 - Encounter for general adult medical examination without abnormal findings Category: Medical Plan History of Present Illness The patient is a 54-year-old female presenting for an annual physical examination. She has a past medical history significant for white coat syndrome that affects blood pressure readings mainly in clinical settings. Previously, a colonoscopy identified a tubular adenoma, necessitating future surveillance. Her vitamin D deficiency is managed with daily supplementation. Family history is notable for breast cancer in her mother, and cardiovascular issues in her father and maternal uncle, contributing to her ongoing health vigilance. Comprehensive blood work performed in September 2022, exhibited mild leukopenia, with the remainder of her panel showing normal results, including renal, hepatic, and thyroid functions, as well as lipid profile and specific vitamins. Since her last evaluation, there have been no additional health concerns or surgical interventions. The patient remains active, recently participating in a half [employer] event, emphasizing her commitment to physical fitness. She chose to abstain from alcohol, reports no tobacco use, and has no history of recreational drug use. The patient denies experiencing symptoms such as dizziness, syncope, gastrointestinal distress, or urinary complications in recent times. Health Maintenance - Tubular adenoma follow-up colonoscopy planned next year, last occurred in 2020. - Mammogram up to date as of October 2024. - Blood work showed mild leukopenia in September 2022 with vitamin D deficiency; supplementation recommended (2968-4809 units daily). - Encouraged daily exercise and hydration. - Discussed healthy dietary practices. - Advised on the potential for shingles vaccination, conditional upon insurance coverage. Social History - Engages in daily physical exercise, including regular running and participation in endurance events. - Currently abstaining from alcohol consumption as part of a self-initiated challenge. - Denies any use of tobacco or recreational drugs. - Patient is supported in her activities by her spouse and social network. Review of Systems - Cardiovascular: Denies chest heaviness or discomfort. - Respiratory: Denies shortness of breath or wheezing. - Gastrointestinal: Denies nausea, vomiting, swallowing difficulties, or regular heartburn, except when consuming unhealthy foods. - Genitourinary: Denies frequency or urgency, nocturia typically once nightly. - Neurological: Denies dizziness, syncope, or changes in visual acuity. - Musculoskeletal: Denies pain on exertion or during recent physical activities. Physical Exam General: Cooperative, healthy appearing, comfortable, no acute distress and well developed Orientation: Patient oriented x3 Limitations: No limitations Head: Normal to inspection Ears: Hearing grossly normal bilaterally Nose: Normal external nose present Face and sinus: Normal facial exam Eyes: Appearance normal, both eyes and all related structures Neck: Normal visual inspection and Yes full ROM Respiratory: Normal respiratory effort and able to speak in complete sentences. Clear to auscultation bilaterally Cardiovascular: Regular rate and rhythm. Normal S1 and S2 GI: Normal to inspection. Soft to palpation and nontender Skin: No rashes or lesions noted Neuro: Patient oriented x3 Extremities: Normal to inspection Results - Labs: Blood work in September 2022 indicated mild leukopenia and vitamin D deficiency, normal blood count, normal electrolytes, normal renal function, normal liver function, normal blood sugar, normal thyroid function, normal folic acid levels. - Imaging: Mammogram current as October 2024. Plan In today's visit, we focused on the patient's ongoing health maintenance. For white coat syndrome, current management remains the same as blood pressure readings outside of clinical settings are normal. Her vitamin D deficiency will continue to be managed with supplementation. Screening and diagnostic measures, like her mammogram, remain up to date, and a follow-up colonoscopy is planned for next year. The patient?s active lifestyle and dietary measures support health maintenance efforts. We discussed the potential shingles vaccination depending on coverage and indicated no further changes to current care plans at this time. Monitoring will continue, with encouragement to maintain communication regarding any new or persistent symptoms. Patient was informed and verbally consented to the use of an ambient scribe for clinic note documentation during this visit. Discussion Notes During our discussion, we reviewed the patient's current health status and previous bloodwork, emphasizing her existing conditions such as white coat syndrome and a history of colon adenoma. We advise vitamin D supplementation to address her deficiency and assessed her eligibility and interest in the shingles vaccine, conditional on insurance. Finally, we offered recommendations for health maintenance, including lifestyle modifications and adherence to a balanced diet, emphasizing hydration and regular physical activity. We provided reassurance and guidance, confirming that her current management plan remains appropriate, with vigilance for change in symptoms or health status needing future attention. Patient Instructions - Advise taking vitamin D supplements daily as advised (4749-3931 units). - Maintain regular physical activity and healthy eating habits. - Stay well-hydrated and exercise daily. - Monitor and manage any health changes, and report these promptly if they arise. - Follow up on insurance coverage for the shingles vaccine. - Schedule a follow-up colonoscopy next year as discussed. - Monitor blood pressure regularly at home. - Feel free to reach out with any health concerns or questions. Orders: Orders Free T4 (Free Thyroxine) Today Z00.00 - Encounter for general adult medical examination without abnormal findings Magnesium Today Z00.00 - Encounter for general adult medical examination without abnormal findings Complete Blood Count Auto Diff Today Z00.00 - Encounter for general adult medical examination without abnormal findings Comprehensive Met. Panel Today Z00.00 - Encounter for general adult medical examination without abnormal findings Thyroid Stimulating Hormone Today Z00.00 - Encounter for general adult medical examination without abnormal findings Lipid Panel Today Z00.00 - Encounter for general adult medical examination without abnormal findings Vitamin B12 and Folate Today Z00.00 - Encounter for general adult medical examination without abnormal findings Vitamin D 25-OH Total Today Z00.00 - Encounter for general adult medical examination without abnormal findings
[2025-02-23 08:58] VITALS: BP 130/70; TEMP 36.2; BMI 24.2
--- OUTSIDE RECORDS SUMMARY | 2025-02-23 09:18 | XMS_ITS | Patient Health Record ---
Author Organization [facility] Address [address] [place] [address] Care Team Providers [facility] Home [facility] Rn Name Role Phone Eileen Awad MD Primary Care Provider Homer Day [phone] Allergies No Known Allergies Reason For Referral No Information Medications Medication SIG (Take, Route, Frequency, Duration) Notes Start Date End Date Status Keila 0.35 MG Oral for 84 Acti ve Magnesium Extra Strength 400 MG 1 capsule as needed Orally Once a day for 30 day(s) Active Immunizations Vaccine Route Administration Date Status Comme nts Influenza Unknown 07/05/2020 Administered Social History Tobacco Use: Social History Observation Description Date Details (start date - stop date) Never Smoker NA - NA Tobacco Use/Smoking Question Answer Notes Patient is a nonsmoker Alcohol Screen Question Answer Notes Did you have a drink contain ing alcohol in the past year? Yes How often did you have a dri nk containing alcohol in the past year? 2 to 4 times a month (2 points) How many drinks did you have on a typical day when you were drinking in the past year? 1 or 2 drinks (0 point) How often did you have 6 or more drinks on one occasion in the past year? Never (0 point) Points 2 Interpretation Negative Section Notes: Nonsmoker; no sig alcohol Problems Problem Type SNOMED Code ICD Code Onset Dates Problem Status W/U Status Risk Notes Problem 865615271 Encounter for screening for malignant neoplasm of colon (Z12.11) Active confirmed Problem 476832967 Elevated liver enzymes (R74.8) Active confirmed Problem Diverticulosis of sigmoid colon (545743948) Diverticulosis of sigmoid colon (K57.30) Active confirmed Plan Of Treatment Pending Test Test Name Order Date LIVER PROFILE 07/11/2021 FLUOR. ANTINUCLEAR AB SCREEN (IRIS) 05/2021 Future Test Test Name Order Date COLONOSCOPY 07/11/2021 Insurance Providers Payer Name Payer Address Payer Phone Subscriber Number Group Number Insured Name Patient Relationship to Insured Coverage Start Date Coverage End Date [facility] [address] [facility] [place] [phone] [id number] FABIÁN MORTENSEN Self - patient is the insured Medical (General) History Medical History History ICD Code Denies [place],DM,CVA,Lung disease,renal dise ase Minimal elevation of LFT's o terri the years dating back to at least 2006 with a negative workup including Hepatitis B and C studies, negative iron studies, negative JASON in 2006; although JASON was noted to be+ in 06/2021 at a titer of 1:1,280 Surgical History Surgery Date(Month/Year) 2 C-sections 1993/1996
== END 2025-02-23 09:25 | disposition home or self-care (01) ==
LOC: HO.HMCH 08:53
PROVIDERS: PCP Internal Medicine; Visit Provider Internal Medicine
DX: E55.9 Vitamin D deficiency, unspecified (principal); Z00.00 Encounter for general adult medical examination without abnormal findings

== ENCOUNTER → 2025-02-23 08:52 | Outpatient (BNVA) | payer OTHER, SELFPAY | PROVIDERS: PCP Internal Medicine; Visit Provider Internal Medicine | DX: Z13.89 Encounter for screening for other disorder (principal) ==

== ENCOUNTER 2025-02-23 09:29 | Outpatient (REF) | payer OTHER, SELFPAY ==
[2025-02-23 09:51] LABS: MANUAL DIFF FLAG NO
[2025-02-23 10:19] LABS: Basophils Absolute Auto 0.1 X10*3/uL (0.0-0.2); Basophils Percent Auto 0.9 % (0-2); Eosinophils Absolute Auto 0.1 X10*3/uL (0.0-0.4); Eosinophils Percent Auto 1.7 % (0-4); Hematocrit 41.8 % (37.0-47.0); Imm Gran Abs Auto 0.03 X10*3/uL (0.00-0.03); Imm Gran Pct Auto 0.6 % (0.0-0.4); Lymphocytes Absolute Auto 1.9 X10*3/uL (1.2-4.9); Lymphocytes Percent Auto 35.1 % (20-40); Mean Corpuscular HGB Conc 33.5 g/dl (31.0-35.0); Mean Corpuscular Hemoglobin 29.4 pg (27.0-33.0); Mean Corpuscular Volume 87.8 fL (80.0-98.0); Mean Platelet Volume 10.3 fL (9.4-12.3); Monocytes Absolute Auto 0.4 X10*3/uL (0.1-1.2); Monocytes Percent Auto 6.7 % (2-11); Platelet Count 238 X10*3/uL (160-400); Red Blood Count 4.76 X10*6/uL (4.20-5.50); Red Cell Distribution Width 11.3 % (11.0-16.0); White Blood Count 5.4 X10*3/uL (4.8-10.8)
[2025-02-23 11:04] LABS: Alanine Aminotransferase 21 U/L (0-31); Albumin Level 4.5 g/dL (3.5-5.0); Alkaline Phosphatase 83 U/L (39-117); Anion Gap 12 (12-20); Aspartate Amino Transferase 37 U/L (5-31); Bilirubin Total 0.6 mg/dL (0.0-1.0); Blood Urea Nitrogen 11 mg/dL (9-16); Calcium 9.5 mg/dL (8.4-10.2); Carbon Dioxide 29 mmol/L (22-29); Chloride 104 mmol/L (96-108); Cholesterol 264 mg/dL (<200); Estimated Glomerular Filt Rate > 60; Glucose Random 84 mg/dL (60-115); HDL Cholesterol 129 mg/dL (>40); LDL Cholesterol Calculated 125 mg/dL (<100); Potassium 3.8 mmol/L (3.3-5.1); Sodium 141 mmol/L (135-145); Total Protein 7.4 g/dL (6.5-8.0); Triglycerides 54 mg/dL (<150)
[2025-02-23 11:18] LABS: Free T4 (Free Thyroxine) 1.03 ng/dL (0.71-1.85); Thyroid Stimulating Hormone 0.96 uIU/mL (0.32-4.0); Vitamin D 25-OH Total 22.3 ng/mL (>30)
[2025-02-23 11:27] LABS: Vitamin B12 458 pg/mL (200-900)
== END 2025-02-23 09:30 | disposition home or self-care (01) ==
LOC: HO.10HDL 09:29
PROVIDERS: Visit Provider Internal Medicine
DX: Z00.00 Encounter for general adult medical examination without abnormal findings (principal); Z13.6 Encounter for screening for cardiovascular disorders
CPT/HCPCS: 36415; 80053; 80061; 82306; 82607; 82746; 83735; 84439; 84443; 85025

== ENCOUNTER 2025-06-30 14:18 | Outpatient (REF) | payer OTHER, SELFPAY ==
--- NOTE | ~2025-06-30 | XR_ITS ---
EXAMINATION: XR FOOT, LEFT CLINICAL INFORMATION: M79.672 - Pain in left foot; pain dorsum of left foot. COMPARISON: None available. TECHNIQUE: AP, lateral, and oblique views of the left foot. FINDINGS: No fracture, dislocation, or suspicious bone lesion. Normal bone mineralization. Normal alignment. Joint spaces are preserved. No significant arthropathy. Normal plantar arch. There is a moderate-sized plantar calcaneal spur. Soft tissues appear normal. XR/XR foot LT min 3V IMPRESSION: 1. No acute bony abnormalities of the left foot. Electronically signed by: Chang Dailey MD 06/30/2025 03:37 PM EDT
== END 2025-06-30 14:19 | disposition home or self-care (01) ==
LOC: HO.XRAY 14:18
PROVIDERS: PCP Internal Medicine
DX: M79.672 Pain in left foot (principal)
CPT/HCPCS: 73630

== ENCOUNTER 2025-06-30 14:18 | Outpatient (AMB) | payer OTHER, SELFPAY ==
[2025-06-30 14:21] VITALS: BP 114/68; PULSE 66; RESP 18; TEMP 36.3; O2SAT 97; BMI 24.3
--- NOTE | 2025-06-30 14:21 | A.OFFPC_ITS ---
Vital Signs 06/30/25 14:21 Height 6 ft Weight 179 lb 6 oz BMI 24.3 BP 114/68 Blood Pressure Location Lt brachial Position Sitting Respiration 18 Pulse 66 Pulse Source Pulse Oximeter Temp 97.3 F Temp Source Temporal Artery Scan Pulse Oximetry (%) 97 Oxygen Delivery Method Room Air Intake Visit Reasons: Left foot pain Director Maternal Child Required: No Accompanied by: Self / Same As Patient Allergies No Known Allergies Allergy (Verified 06/30/25 14:42) Medication List - Last Reconciled 06/30/25 by DASHAWN Liao magnesium oxide 400 mg PO DAILY Tobacco use date assessed: 06/30/25 Dental Screening Dental Screen Date: 06/30/25 Did you have a dental visit in the last 12 months?: Yes Did you have a dental problem in the last 6 months where you did not have access to dental care?: No Was dental information given to patient?: Patient has dentist HPI Left foot pain HPI Details The patient is a 55-year-old female presenting with foot pain. The pain began approximately two weeks ago after a running session where she suspected her sneakers were tied too tightly. She continued running despite the discomf ort, which resulted in significant pain upon returning home. The pain is localized at the top of the foot and is exacerbated by pressure and walking, sometimes causing sharp pain throughout the foot. The patient has a history of running and is accustomed to tolerating pain, indicating this level of discomfort is unusual for her. She has contacted a national account representative but was unable to secure a timely appointment, prompting her visit today for an x-ray to rule out any significant injury. The patient is concerned about being advised to stop running, which she values for both mental and physical health benefits. [facility] Medical History Abnormal physical evaluation Colon cancer screening Onychomycosis Surgical History History of section Family History Father Heart disease Irregular heart beat Mother Breast cancer Brother In good health Son In good health Maternal Uncle Myocardial infarct Social History Housing: Apartment Alcohol intake: current Alcohol intake frequency: holidays/special occasions only Comment: 1 a week 1-2 drinks, 02/2025 now less Patient Tobacco Use Status: Never used Tobacco e-Cigarette/Vaping Use: Never Used Second Hand Smoke Exposure: No service: No Current occupational status: employed Cognitive needs: No Hearing needs: No Vision needs: Yes (Glasses) Questionnaire PHQ-9 Over the last 2 weeks, how often have you been bothered by any of the following problems? 1. Little interest or pleasure in doing things: not at all 2. Feeling down, depressed, or hopeless: not at all 3. Trouble falling or staying asleep, or sleeping too much: not at all 4. Feeling tired or having little energy: not at all 5. Poor appetite or overeating: not at all 6. Feeling bad about yourself - or that you are a failure or have let yourself or your family down: not at all 7. Trouble concentrating on things, such as reading the newspaper or watching television: not at all 8. Moving or speaking so slowly that other people could have noticed. Or the opposite - being so fidgety or restless that you have been moving around a lot more than usual: not at all 9. Thoughts that you would be better off or of hurting yourself in some way: not at all Total score: 0 Depression Screening Interpretation: Negative Depression Screening Done: Yes Source: Developed by Drs. Homer Ramírez, Charmaine Cutler, Car Sanon and colleagues, with an educational ej from [employer]. Thrive Questionnaire Date Thrive assessed: 06/30/25 I am a: Patient What is your living situation today?: I have a steady place to live Within the past 12 months, did the food you bought not last and you didn't have the money to get more?: Never true Within the past 12 months, did you worry whether your food would run out before you got money to buy more?: Never true Do you have trouble paying for medicines?: No Do you have trouble getting transportation to medical appointments?: No Do you have trouble paying your heating and electricity bill?: No Do you have trouble taking care of your child, family member or friend?: No Do you have trouble with day-to-day activities such as bathing, preparing meals, shopping, managing finances, etc.?: No Are you currently unemployed and looking for a job?: No Are you interested in more education?: No Please select the resources that you would like help with: None Currently or been in a relationship where the following occur: No concerns reported THRIVE Score: 0 AUDIT C Alcohol Use Questionnaire (AUDIT-C) 1. How often do you have a drink containing alcohol?: 2-4 times a month 2. How many drinks containing alcohol do you have on a typical day when you are drinking?: 1 or 2 3. How often do you have six or more drinks on one occasion?: Never Total Score: 2 ASHOK-7 AMB Questionnaire ASHOK-7 Date ASHOK - 7 assessed: 06/30/25 Feeling nervous, anxious, or on edge: 0 = Not at all Not being able to stop or control worryin = Not at all Worrying too much about different things: 0 = Not at all Trouble relaxin = Not at all Being so restless that it is hard to sit still: 0 = Not at all Becoming easily annoyed or irritable: 0 = Not at all Feeling afraid as if something awful might happen: 0 = Not at all Total ASHOK-7 score (0-4 normal; 5-9 mild; 10-14 moderate; 15-21 severe): 0 Source: Developed by Drs. Homer Ramírez, Charmaine Cutler, Car Sanon and colleagues, with an educational ej from [employer]. Review of Systems Const Denies chills, Denies fever(s) and Denies weakness Eyes Reports no additional complaints ENT Denies dizziness Card Denies chest pain, Denies syncope, Denies edema, Denies irregular heart rhythm, Denies lightheadedness and Denies dyspnea Resp Denies cough and Denies dyspnea Reports no additional complaints Musc Reports other (left foot pain) Skin/Breast Reports system reviewed and no additional complaints, except as documented Neuro Denies dizziness, Denies syncope and Denies weakness Physical exam (Primary Care) Vital Signs: Last Vital Signs Temp 97.3 F 06/30/25 14:21 Pulse 66 06/30/25 14:21 Resp 18 06/30/25 14:21 BP 114/68 06/30/25 14:21 Pulse Ox 97 06/30/25 14:21 Oxygen Delivery Method Room Air 06/30/25 14:21 BMI result Body Mass Index 24.3 Tobacco/Smoking Status: Tobacco use Status Tobacco use date assessed 06/30/25 06/30/25 14:27 Patient Tobacco Use Status Never used Tobacco 06/30/25 14:27 e-Cigarette/Vaping Use Never Used 06/30/25 14:27 PHQ-9: PHQ-9 Score PHQ-9: Total score 0 06/30/25 14:27 Depression Screening Interpretation: Negative Thrive Assessment: Date of Thrive Assessment Date Thrive assessed 06/30/25 06/30/25 14:27 Currently or been in a relationship where the following occur: No concerns reported Const General: cooperative, healthy appearing, comfortable and no acute distress Orientation/consciousness: patient oriented x3 HENMT Head: Yes normocephalic Ears: hearing grossly normal bilaterally General nose exam: Normal external nose present Eyes General: appearance normal, both eyes and all related structures Conjunctivae: conjunctivae normal Neck Neck: Yes full ROM and Yes no lymphadenopathy Resp Effort & Inspection: normal respiratory effort Auscultation: clear to auscultation bilaterally, no crackles, no rales, no rhonchi and no wheezes Cardio Rate: regular rate Rhythm: regular rhythm Skin General skin exam: no rashes or lesions noted Neuro General: patient oriented x3 Gait exam (Neuro): Normal gait present Extrem General: Yes normal to inspection, Yes full ROM and No edema Left lower extremity: foot (+cms, no erythemia) Details: tenderness, no edema and edema; no unusual warmth and no crepitus Psych Affect: normal affect Attitude: cooperative Insight: Good insight present (Psych) Judgement: Good judgement present (Psych) Coding Level of Care Code Est Pt Level 3 (04978) Diagnoses Left foot pain M79.672 Time Spent (min) 26 Assessment & Plan Assessment & Plan (1) Left foot pain: Code(s): M79.672 - Pain in left foot Category: Medical Plan The plan is to perform an x-ray to assess for any underlying fractures or significant injuries that may not be apparent clinically. Orders: Orders XR foot LT min 3V Today M79.672 - Pain in left foot
--- OUTSIDE RECORDS SUMMARY | 2025-06-30 15:19 | XMS_ITS | Patient Health Record ---
Author Organization [facility] Address [address] [place] [address] Care Team Providers Care Sales Recruitment Specialist Name Role Phone Eileen Awad MD Primary Care Provider Homer Day [phone] Allergies No Known Allergies Reason For Referral [...] Problem Status W/U Status Risk Notes Problem 147388432 Encounter for screening for malignant neoplasm of colon (Z12.11) Active confirmed Problem 286002305 Elevated liver enzymes (R74.8) Active confirmed Problem Diverticulosis of sigmoid colon (332551010) Diverticulosis of sigmoid colon (K57.30) Active confirmed Plan Of Treatment Pending Test Test Name Order Date LIVER PROFILE 07/11/2021 FLUOR. ANTINUCLEAR AB SCREEN (IRIS) 05/2021 Future Test Test Name Order Date COLONOSCOPY 07/11/2021 Insurance Providers Payer Name Payer Address Payer Phone Subscriber Number Group Number Insured Name Patient Relationship to Insured Coverage Start Date Coverage End Date [facility] [address] [facility] [place] [place] [phone] [id number] FABIÁN MORTENSEN Self - patient is the insured Medical (General) History Medical History History ICD Code Denies MO,DM,CVA,Lung disease,renal dise ase Minimal elevation of LFT's o terri the years dating back to at least 2006 with a negative workup including Hepatitis B and C studies, negative iron studies, negative JASON in 2006; although JASON was noted to be+ in 06/2021 at a titer of 1:1,280 Surgical History Surgery Date(Month/Year) 2 C-sections 1993/1996
--- OUTSIDE RECORDS SUMMARY | 2025-06-30 15:19 | XMS_ITS | Patient Health Record ---
Author Organization [facility] Address [address] [place] [address] Care Team Providers Care Clerk Of Superior Court Name Role Phone Eileen Awad Primary Care Provider Nidia Yu Unavailable [phone] Reason For Referral No Information Medications Medication SIG (Take, Route, Fr equency, Duration) Notes Start Date End Date Status Piroxicam 20 MG 1 capsule with food Orally Once a day; Duration: 30 day(s) 07/04/2017 Active Sharobel 0.35 MG Orally Act elizabeth Work Note . . . patient must be allowed to wear athletic shoes to work until further notice 07/04/2017 Active Social History Tobacco Use: Social History Observation Description Date Details (start date - stop date) Never Smoker NA - NA Tobacco Use/Smoking Question Answer Notes Are you a: nonsmoker Additional Findings: Tobacco Non-User Current no n-smoker Alcohol Screen Question Answer Notes Did you have a drink contain ing alcohol in the past year? Yes How often did you have a dri nk containing alcohol in the past year? Monthly or less (1 point) Points 1 Interpretation Negative Tobacco use other than smoking: Question Answer Notes Are you an other tobacco user? No Plan Of Treatment Pending Test Test Name Order Date X ray : Foot, right 3V 07/04/2017 Next Appt Details Provider Name:Nidia clemons, 09/13/2025 01:00:00 PM, [address] [facility], [place], [address], Insurance Providers Payer Name Payer Address Payer Phone Subscriber Number Group Number Insured Name Patient Relationship to Insured Coverage Start Date Coverage End Date [facility] [address] [facility] [place] [address] Ela Sheridan Self - patient is the insured Medical (General) History Medical History History ICD Code Chicken pox Surgical History Surgery Date(Month/Year) section 12/10/96- 08/21/94
== END 2025-06-30 14:51 | disposition home or self-care (01) ==
LOC: HO.HMCH 14:18
PROVIDERS: PCP Internal Medicine
DX: M79.672 Pain in left foot (principal)

== ENCOUNTER → 2025-06-30 15:07 | Outpatient (BNV) | payer OTHER, SELFPAY | PROVIDERS: PCP Internal Medicine; Visit Provider Radiology Diagnostic Radiology | DX: M77.32 Calcaneal spur, left foot (principal) | CPT/HCPCS: 73630 ==

== ENCOUNTER 2025-10-25 08:02 | Outpatient (REF) | payer OTHER, SELFPAY ==
--- OUTSIDE RECORDS SUMMARY | 2025-09-13 08:00 | XMS_ITS ---
Author Organization [facility] Address [address] [place] [address] Care Team Providers Care Grease Maker Head Name Role Phone Eileen Awad Primary Care Provider Nidia Yu [phone] Social History Tobacco Use: Social History Observation Description Date Details (start date - stop date) Never Smoker NA - NA Tobacco Use/Smoking Question Answer Notes Are you a: nonsmoker Additional Findings: Tobacco Non-User Current no n-smoker Tobacco use other than smoking: Question Answer Notes Are you an other tobacco user? No Encounters Encounter Location Date Provider Diagnosis [address] [address] 09/13/2025 Nidia Travis Plan Of Treatment No Information Progress Notes * Ela MORTENSEN LDOB:1970 (55 yo F)Acc No.[id number]:09/13/2025 Progress Notes Patient: Misa ISAACS Ela Kirby Provider: Karmen Travis DPM :1970 A ge:55 Y S ex:Female Date:09/13/2025 Address:[address] [place] [id number] Pcp:Eileen Awad Subjective: * Chief Complaints: * * ROS: G eneral/Constitutional: Nausea d enies. V omiting d enies. H octavia Thirst d enies. L oss appetite d enies. C hills d enies. F atigue d enies.?Fever d enies. N ight Sweats d enies. U nexplained weight loss d enies. U nexplained weight gain d enies. H EENTM: Dentures d enies. D izziness d enies. G lasses/contacts d enies. R etinopathy d enies. B lurred/double vision d enies. T MJ?denies. D ischarge/drainage d enies. I mplants d enies. S ore throat d enies. D ental implants d enies. H vicenta of hearing d enies. D ifficulty chewing/swallowing/speaking d enies. N ose bleeds d enies. S ore mouth d enies. ? R espiratory: On Oxygen d enies. P neumonia/pleurisy d enies.?Bronchitis d enies. E mphysema d enies. C oughing d enies. C ough blood?denies. S hortness of breath d enies. W heezing d enies. C ardiovascular: Pacemaker d enies. M INSPECTOR SEMICONDUCTOR WAFER d enies. W PW d enies. C HF d enies. H eart attack d enies. S eptal defect d enies. R apid beat d enies. C hest pain d enies. A trial Fib. d enies. M urmur/Palpitations d enies. G astrointestinal: Hemorrhoids d enies. S tomach/Abdominal pain d enies. D ark blood stool d enies. I rritable bowel d enies. C onstipation d enies. D iarrhea d enies. H ematology: Swelling d enies. C lots d enies. V aricose Veins d enies. B ruising d enies. B leeding problem d enies. G enitourinary: Blood urine d enies. F requent/Painfu/urination/bladder control d enies. K idney stones d enies. I nfection (UTI) d enies. N ephropathy d enies. s ex trans dis (STD) d enies. P rostate d enies. M usculoskeletal: Hammertoes d enies. B unions d enies. B ack Pain d enies. M uscle Cramps/ Resting d enies. M uscle cramps / walking d enies.?Generalized aches and pains d enies. W eakness d enies. I nteg.: Duncan d enies. S cars d enies. C orns/calluses?denies. I ngrown nails d enies. P ainful nails d enies. O pen Sores d enies. R ashes d enies. N eurologic: Difficulty sleeping d enies. B rain disorder d enies. N umbness d enies. B alance trouble d enies. C onfusion d enies. F ainting/blackouts d enies. T ingling d enies. T remors d enies. * Medical History: C hicken pox. * Surgical History: c esarean section 12/10/96- 08/21/94. * Family History: M other: unknown, breast cancer, diagnosed with Other malignant neoplasm of unspecified site, Unspecified essential hypertension. F ather: unknown. P aternal Grand Father: diagnosed with Unspecified essential hypertension. * Social History: T obacco Use: T obacco Use/Smoking A re you a: n onsmoker A dditional Findings: Tobacco Non-User C urrent non-smoker Tobacco use other than smoking A re you an other tobacco user? N o M iscellaneous: C affeine: yes, frequency: , 1-2 cups per day. Children: yes, 2. Exercise: yes, walking, running, biking. Marital status: . 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 Objective: * Vitals: Assessment: Plan: * Treatment: * Images: * The named appointment provid er may or may not be the originator of this progress note, and it is not deemed complete until electronically signed by the appointment provider. Sign off status: Pending * Provider: Karmen Travis DPM Date: 11/13/2024 Generated for Srinivas padgett/Bea/Janett on: 12/26/2024 08:07 AM EST
--- NOTE | ~2025-10-25 | MM_ITS ---
EXAMINATION: MM SCREENING DIGITAL BREAST TOMOSYNTHESIS, BILATERAL CLINICAL INFORMATION: Screening. Asymptomatic. COMPARISON: Mammography: Comparison is made with available priors TECHNIQUE: Digital breast mammography with tomosynthesis is performed in both the craniocaudal and mediolateral oblique views along with computer-aided detection (CAD). FINDINGS: There are scattered areas of fibroglandular density. There are no significant masses, abnormal calcifications, or other abnormalities. MM/MM tomosynthesis screening BI IMPRESSION: No mammographic evidence of malignancy. ASSESSMENT: BI-RADS Category 1: Negative RECOMMENDATION: Routine annual mammography screening. 1 year F/U This examination should not preclude the clinical evaluation of a suspicious palpable abnormality. This patient's information was entered into a reminder system with a target due date for their next mammogram. Electronically signed by: Ally Basurto DO 10/25/2025 09:37 AM ELYSSA
--- OUTSIDE RECORDS SUMMARY | 2025-10-25 08:08 | XMS_ITS | Patient Health Record ---
Author Organization Located Within [facility] Robinson Address [address] [place] [address] Care Team Providers Care Dean Of Men Name Role Phone Eileen Awad Primary Care Provider Nidia Yu [phone] Reason For Referral No Information Medications Medication [...] No Encounters Encounter Location Date Provider Diagnosis Located [facility] [address] [place] [address] 08/31/2025 Nidia Travis Plan Of Treatment Pending Test Test Name Order Date X ray : Foot, right 3V 07/04/2017 Insurance Providers Payer Name Payer Address Payer Phone Subscriber Number Group Number Insured Name Patient Relationship to Insured Coverage Start Date Coverage End Date [facility] [address] [place] [address] [id number] Ela Sheridan Self - patient is the insured Medical (General) History Medical History History ICD Code Chicken pox Surgical History Surgery Date(Month/Year) section 12/10/96- 08/21/94
--- OUTSIDE RECORDS SUMMARY | 2025-10-25 08:08 | XMS_ITS | Patient Health Record ---
Author Organization [facility] Address [address] [place] [address] Care Team Providers Care Machine Erector Name Role Phone Eileen Awad MD Primary Care Provider Homer Day [phone] Allergies No Known Allergies Reason For Referral No Information Medications Medication SIG (Take, Route, Frequency, Duration) Notes Start Date End Date Status Keila 0.35 MG Tablet Oral; Duration: 84 Active Magnesium Extra Strength 400 MG Capsule 1 capsule as needed Orally Once a day; Duration: 30 day(s) Active Immunizations Vaccine Route Administration Date Status Comme nts Influenza Unknown 07/05/2020 Administered Social History Tobacco Use: Social History Observation Description Date Details (start date - stop date) Never Smoker NA - NA Social History Drugs/Alcohol: Social Info Question Answer Notes Alcohol Screen Did you have a drink containing alcohol in the past year? Yes How often did you have a drink containing alcohol in the past year? 2 to 4 times a month (2 points) How many drinks did you have on a typical day when you were drinking in the past year? 1 or 2 drinks (0 point) How often did you have 6 or more drinks on one occasion in the past year? Never (0 point) Points 2 Interpretation Negative Tobacco Use: Social Info Question Answer Notes Tobacco Use/Smoking Patient is a nonsmoker Additional Details Category Social Info Options Details Miscellaneous: Marital status: Occupation: [employer] Section Notes: Nonsmoker; no sig alcohol Problems Problem Type SNOMED Code ICD Code Onset Dates Problem Status W/U Status Risk Notes Problem Screening for malignant neoplasm of colon (780406758) Encounter for screening for malignant neoplasm of colon (Z12.11) Active confirmed Problem Elevated liver enzymes level (809485419) Elevated liver enzymes (R74.8) Active confirmed Problem Diverticulosis of sigmoid colon (861516007) Diverticulosis of sigmoid colon (K57.30) Active confirmed Plan Of Treatment Pending Test Test Name Order Date LIVER PROFILE 07/11/2021 FLUOR. ANTINUCLEAR AB SCREEN (IRIS) 05/2021 Future Test Test Name Order Date COLONOSCOPY 07/11/2021 Insurance Providers Payer Name Payer Address Payer Phone Subscriber Number Group Number Insured Name Patient Relationship to Insured Coverage Start Date Coverage End Date [facility] [address] [place] [phone] [id number] FABIÁN MORTENSEN Self - patient is the [...]
== END 2025-10-25 08:03 | disposition home or self-care (01) ==
LOC: HO.MAMMO 08:02
PROVIDERS: PCP Internal Medicine; Visit Provider Internal Medicine
DX: Z12.31 Encounter for screening mammogram for malignant neoplasm of breast (principal)
CPT/HCPCS: 77063; 77067

== ENCOUNTER → 2025-10-25 08:15 | Outpatient (BNV) | payer OTHER, SELFPAY | PROVIDERS: PCP Internal Medicine; Visit Provider Internal Medicine | DX: Z12.31 Encounter for screening mammogram for malignant neoplasm of breast (principal) | CPT/HCPCS: 77063; 77067 ==